=== PATIENT | female | born 1975 ===

== ENCOUNTER 2016-10-24 15:50 | Inpatient (IN) | payer OTHER ==
[~2016-10-24] VITALS: Ht 162.6 cm; Wt 70.7 kg
--- NOTE | 2016-10-24 20:03 | DIAGNOSTIC IMAGING REPORT ---
PROCEDURE: XR ABDOMEN 1 VIEW UPRIGHT INDICATION: ABDOMINAL PAIN TECHNIQUE: Single view upright abdomen. COMPARISON: None. FINDINGS: No free intraperitoneal air. Nonspecific, nonobstructive bowel gas pattern. Solid organs demonstrate situs inversus. There is a large, ovoid calcification measuring about 18 mm projecting over the right renal shadow. Mild dextroscoliosis of the lumbar spine. Partially imaged median sternotomy changes. IMPRESSION: 1. Large right probably intrarenal 18 mm calcification. 2. Nonobstructive bowel gas pattern. 3. Situs inversus.
--- NOTE | 2016-10-24 20:18 | DIAGNOSTIC IMAGING REPORT ---
PROCEDURE: CT ABDOMEN/PELVIS W/O CONTRAST INDICATION: FLANK PAIN TECHNIQUE: Axial CT images were obtained through the abdomen and pelvis without IV contrast. Coronal and sagittal reformations were created. COMPARISON: None. FINDINGS: Situs inversus in chest and abdomen. Clear lung bases. Mild cardiomegaly (with dextrocardia) with partially imaged mitral annular ring. No hiatal hernia. There is severe left hydronephrosis and mild perinephric inflammation. There is a dependently layering 3 mm calculus in the left extrarenal pelvis. The left ureter is dilated. In the distal ureter at the pelvic inlet, there is of 5 mm collection of two stones or a bilobed stone. Distal to this, the ureter is decompressed. Within the right kidney, there is an ovoid 17 mm, nonobstructing calculus in the lower pole major mirela. Within the upper and mid pole, there are two punctate, nonobstructing intrarenal calculi. There are at least five stones, measuring about a centimeter piece, within the partially decompressed gallbladder. The unenhanced appearance of the liver, adrenal glands, pancreas and spleen is normal. The abdominal aorta is normal in its course and caliber. There are no suspicious calcifications, retroperitoneal adenopathy or masses. The stomach, upper bowel loops, and mesentery are normal. Intact anterior abdominal wall. No free fluid or inflammation. The unenhanced appearance of the uterus, ovaries, urinary bladder, pelvic vessels, and pelvic bowel loops is normal. Normal appendix. No suspicious calcifications, free pelvic fluid or mass. Intact osseous structures. Subcortical cystic changes in the right superior acetabulum. Mild rightward curvature of the lumbar spine. IMPRESSION: 1. Severe left hydronephrosis and perinephric inflammation secondary to a single or two obstructing distal ureteral calculi. 2. Small nonobstructing intrarenal calculi bilaterally, and a large, 17 mm nonobstructing right lower pole major mirela calcification. 3. Cholelithiasis. 4. Mild cardiomegaly. 5. Situs inversus. 6. Findings called to the emergency room. All CT scans at this facility use dose modulation, iterative reconstruction, and/or weight-based dosing when appropriate to reduce radiation dose to as low as reasonably achievable.
--- NOTE | 2016-10-24 21:36 | ED CLINICAL REPORT ---
Clinical Report - Physicians/Mid Levels [facility] [address] [place] [address] 10/24/2016 15:51 Patient: EDUARDO GUEVARA Time Seen: 16:02. Arrived- By private vehicle. Historian- patient. HISTORY OF PRESENT ILLNESS Chief Complaint: ABDOMINAL PAIN and FLANK PAIN. It is described as "pain" and sharp and it is described as located in the epigastric area and the left flank and in the suprapubic area. This started yesterday worse at 0400 and is still present. It was abrupt in onset. At its maximum, severity described as 10 / 10. When seen in the E.D., severity described as 9 / 10. Modifying factors- worsened by movement. The patient has had vomiting (20 plus times). Similar symptoms previously: None. Recent medical care: Not recently seen/assessed. REVIEW OF SYSTEMS Last normal menstrual period- 6 days ago. Para 4. Sexual history - sexually active. Has had a tubal ligation. Last normal menstrual period- 4 days ago. She has had constipation (No flatus). No difficulty with urination or urination or pain with urination. No urinary frequency, urinary frequency or urinary problems or chest pain or pain. No difficulty breathing, cough, fever, eye irritation or ear pain. No sore throat, cough, difficulty breathing, black stools or bloody stools. No diarrhea. Last bowel movement- 5 days ago. She has had abdominal pain, constipation, nausea and back pain (Flank pain). No difficulty walking. All systems otherwise negative, except as recorded above. PAST HISTORY PCP: None/ [facility] Out of meds. Ops: VST and ASD repairs, Csections x 3, Hosp: Cardioversion Illness: SVT, ASD and VSD repaired, SITUS INVERSUS TOTALIS. Medications: Atenolol Oral 100 mg, daily. Zoloft Oral 100 mg. Allergies: Anti-nausea meds ??. Penicillins. Zofran. SOCIAL HISTORY Current every day smoker. ADDITIONAL NOTES The nursing notes have been reviewed. PHYSICAL EXAM Vital Signs: 10/24/2016 16:05 BP: 144/85. HR: 86. RR: 20. O2 saturation: 100%. Temp: 97.6 F. Pain level now: 10. Appearance: Alert. Patient in severe distress. (Marked odor of ketones, hyperventilating). Eyes: No conjunctival findings. ENT: Mildly dry mucous membranes present. Neck: Normal inspection. Neck supple. CVS: 5/6 mid systolic murmur .3/6 decrescendo diastolic murmur. Respiratory: No respiratory distress. Breath sounds normal. Abdomen: Soft. (No femoral hernias). Back: Moderate CVA tenderness on the left. Skin: Skin warm. Normal skin color. Extremities: Extremities exhibit normal ROM. No lower extremity edema. Neuro: No alteration in mental status. LABS, X-RAYS, AND EKG Abdominal CT: No hydronephrosis. IMPRESSION: 1. Severe left hydronephrosis and perinephric inflammation secondary to a single or two obstructing distal ureteral calculi. 2. Small nonobstructing intrarenal calculi bilaterally, and a large, 17 mm nonobstructing right lower pole major mirela calcification. 3. Cholelithiasis. 4. Mild cardiomegaly. 5. Situs inversus. 6. Findings called to the emergency room. All CT scans at this facility use dose modulation, iterative reconstruction, and/or weight-based dosing when appropriate to reduce radiation dose to as low as reasonably achievable. Dictated by: ADOLPH PA MD D: EL;10/24/16 2018 <Electronically signed by ADOLPH PA MD in OV>. The study was interpreted by the radiologist and discussed with the radiologist. Laboratory Tests: UA-Culture if indicated: (PHILIP: 10/24/2016 16:30) ( MsgRcvd 10/24/2016 16:54) Final results Test Result Flag Units (Reference) URINE COLOR YELLOW URINE APPEARANCE CLEAR URINE GLUCOSE NEGATIVE (NEGATIVE) URINE BILIRUBIN NEGATIVE (NEGATIVE) URINE KETONE 3+ (NEGATIVE) URINE SPECIFIC GRAVITY 1.020 (1.010-1.030) URINE PH 6.5 (5.0-8.0) URINE PROTEIN 2+ (NEGATIVE) URINE UROBILINOGEN 1.0 EU/dL (0.2-1.0) URINE NITRITE NEGATIVE (NEGATIVE) URINE BLOOD 2+ (NEGATIVE) URINE LEUK ESTERASE NEGATIVE (NEGATIVE) URINE RBC 10-25 rbc/hpf (0-1) URINE WBC 3-5 wbc/hpf (0-1) URINE EPITHELIAL CELLS 3-5 EPI/hpf (0-5) URINE BACTERIA TRACE (<1+) (NONE SEEN) URINE COMMENT CULT NOT INDICATED URINE CULTURES ARE SET-UP BASED ON THE FOLLOWING CRITERIA:POSITIVE NITRITEPOSITIVE LEUKOCYTE ESTERASEGREATER THAN 10 WHITE BLOOD CELLSMODERATE (2+) OR GREATER BACTERIA Urine: (PHILIP: 10/24/2016 16:30) ( [facility] 10/24[facility] 16[facility]47) Final results Test Result Flag Units (Reference) URINE NEGATIVE CBC w Diff: (PHILIP: 10/24/2016 16:40) ( [facility] 10/24/2016 16:54) Final results Test Result Flag Units (Reference) WHITE BLOOD COUNT 19.4 H K/uL (4.5-11.5) RED BLOOD COUNT 5.27 H M/uL (4.00-5.20) HEMOGLOBIN 15.9 gm/dL (12.0-16.0) HEMATOCRIT 47.5 H % (36.0-46.0) MEAN CELL VOLUME 90 fL (80-100) MEAN CORPUSCULAR HGB 30 pg (26-34) MEAN CORPUSCULAR HGB CONC 33 g/dL (31-37) RED CELL DISTRIBUTION WIDTH 13.3 % (11.6-14.8) PLATELET COUNT 241 K/uL (150-400) NEUTROPHIL % 85.7 H % (50-75) LYMPH % 10.4 L % (25-40) MONO % 3.5 % (3-14) EOSINOPHIL % 0 % (0-4) BASOPHIL % 0.4 % (0-2) Lactate, Serum: (PHILIP: 10/24/2016 17:10) ( [facility] 10/24/2016 17:58) Final results Test Result Flag Units (Reference) LACTIC ACID 3.4 H mmol/L (0.4-2.0) Acetone, Serum: (PHILIP: 10/24/2016 16:40) ( [facility] 10/24/2016 17:08) Final results Test Result Flag Units (Reference) ACETONE, SERUM QUALITATIVE NEGATIVE (NEGATIVE) Urine Drug Screen: (PHILIP: 10/24/2016 16:30) ( [facility] 10/24/2016 16:57) Final results Test Result Flag Units (Reference) AMPHETAMINE/METHAMPHETAMINE NEGATIVE (NEGATIVE) BARBITURATE NEGATIVE (NEGATIVE) BENZODIAZEPINE NEGATIVE (NEGATIVE) CANNABINOID POSITIVE H (NEGATIVE) COCAINE NEGATIVE (NEGATIVE) ECSTASY NEGATIVE (NEGATIVE) METHADONE NEGATIVE (NEGATIVE) OPIATE POSITIVE H (NEGATIVE) The urine drug screen is a qualitative screening test fordrug overdose and abuse. All screen results should beconsidered as presumptive.Drugs screened for are as follows:BenzodiazepinesCocaineAmphetamines/MetamphetaminesTHC (Tetrahydrocannabinol)OpiatesBarbituratesEcstasyMethadonePositive results are unconfirmed. For confirmation, notifythe lab for the specimen to be sent to the reference lab.All confirmations must be performed by a differentmethodology.The ingestion of natural herbal and plant productscontaining Ephedra/Ephedra metabolites can produce in urineone or more substances capable of cross reacting withamphetamine/methamphetamine immunoassays. These testsprovide a preliminary result only. A more specificalternative chemical method must be used to obtain aconfirmed analytical result. CMP: (PHILIP: 10/24/2016 16:40) ( [facility] 10/24/2016 17:08) Final results Test Result Flag Units (Reference) GLUCOSE 132 H mg/dL (70-110) BUN 17 mg/dL (7-18) CREATININE 1.4 H mg/dL (0.6-1.3) Estimated GFR 44.49 mL/min Estimated GFR- 53.93 mL/min Note: Persistent reduction over 3 months in eGFR<60 mL/min/1.73 m2 defines CKD. Patients with eGFR values>=60 mL/min/1.73 m2 may also have CKD if evidence ofpersistent proteinuria. Additional information may be foundat www.kidney.org. SODIUM 141 mmol/L (136-145) POTASSIUM 3.4 L mmol/L (3.5-5.1) CHLORIDE 103 mmol/L (98-107) CARBON DIOXIDE 19 L mmol/L (21-32) CALCIUM 9.8 mg/dL (8.5-10.1) TOTAL PROTEIN 9.0 H g/dL (6.4-8.2) ALBUMIN 4.5 g/dL (3.3-5.0) BILIRUBIN, TOTAL 1.0 mg/dL (0.0-1.0) ALKALINE PHOSPHATASE 112 U/L (46-116) AST (SGOT) 16 U/L (15-37) ALT (SGPT) 16 U/L (12-78) . PROGRESS AND PROCEDURES Course of Care: PRE TEST DDX: Renal colic, pyelonephritis, much less likely mesenteric ischemia. 21:10 10/24/16. After an initial misunderstanding that [facility] did not have available beds it was discovered that [facility] did have beds. My plan was to admit the patient to [facility] for control of vomiting and pain with a urologist available to consult. The [facility] urologist, Dr Cary, states that the patient should not be transfered and that she did not need to consult. Only pain relief and control of nausea were needed at this time, with later Urology referral. 21:15 10/24/16. Dr Salinas agrees to accept the patient to [facility] 23:45 10/24/16. In review of labs at the time of this report the lactate was discuvered to be elevated. Dr Teresa was informed. The patient has no fever x 2, and a non infected appearing urinary sediment. Disposition orders written. Disposition: Admitted. CLINICAL IMPRESSION INTRACTABLE VOMITING ACUTE ABDOMINAL PAIN SECONDARY TO A 5 MM L URETERAL STONE. 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 (Electronically signed by Erasto Gomez MD 10/24/2016 23:55)
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
--- NOTE | 2016-10-24 21:36 | ED ORDER SUMMARY ---
..... Patient: EDUARDO GUEVARA OrderSheet [facility] VisitID: [id number] [address] [place] [address] 40y, F Registration Date/Time: 10/24/2016 ORDER SHEET Weight: 70.3 kg (stated) Allergies: Penicillins, Zofran, Anti-nausea meds ?? GENERAL ORDERS: -- (IN AND OUT CATH UA) (16:11 10/24/2016 Shukri LITTLE) (16:33 JSimbeck R.N.) CBC w Diff Urgent (16:11 10/24/2016 Shukri LITTLE) (Ack 16:13 Alexey) (16:47 JSimbeck R.N.) CMP Urgent (16:11 10/24/2016 Shukri LITTLE) (Ack 16:13 Alexey) (16:47 JSimbeck R.N.) UA-Culture if indicated Urgent (16:11 10/24/2016 Shukri LITTLE) (Ack 16:13 Alexey) (16:32 JSimbeck R.N.) Urine Urgent (16:11 10/24/2016 Shukri LITTLE) (Ack 16:13 Alexey) (16:32 JSimbeck R.N.) Urine Drug Screen Urgent (16:11 10/24/2016 Shukri LITTLE) (Ack 16:13 Alexey) (16:32 JSimbeck R.N.) - (16:11 10/24/2016 Shukri LITTLE) (16:33 JSimbeck R.N.) Acetone, Serum Urgent (16:55 10/24/2016 Shukri LITTLE) (Ack 17:02 Alexey) (17:54 JSimbeck R.N.) Lactate, Serum Urgent (16:59 10/24/2016 Shukri LITTLE) (Ack 17:02 Alexey) (17:54 JSimbeck R.N.) Abdomen 1V Upright Urgent (17:08 10/24/2016 Shukri LITTLE) (Ack 17:17 Alexey) (18:31 Cristi) CT Abd/Pel wo Cont Urgent (17:49 10/24/2016 Shukri LITTLE) (Ack 17:51 Alexey) (18:31 Cristi) - (repeat twemp please.) (21:22 10/24/2016 Shukri LITTLE) (21:35 Leila Ngo) MEDICATION ORDERS: Flomax PO 0.4 mg (NOW) (22:11 10/24/2016 Shukri LITTLE) (Ack 22:20 JQuivey R.N.) (22:25 JQuivey R.N.) IV FLUIDS: IV NS : initial bolus none -, then 500 mL/hr for 2h (NOW); Urgent (16:10 10/24/2016 Shukri LITTLE) (16:48 Isabell Ortiz.N.) Dilaudid IV 1 mg (HIGH ALERT MEDICATION, NOW) (16:49 10/24/2016 Shukri LITTLE) (17:11 Isabell Ortiz.N.) Zofran IV 8 mg (risks worth benefit. ) (16:56 10/24/2016 Shukri LITTLE) (17:11 Isabell R.N.) Zofran IV 2 mg iv (NOW) (20:06 10/24/2016 Shukri LITTLE) (Ack 20:10 Adelinaivey R.N.) (20:16 Adelinaivey R.N.) Dilaudid IV 1 mg (HIGH ALERT MEDICATION, NOW) (20:06 10/24/2016 Shukri LITTLE) (Ack 20:10 JQuivey R.N.) (20:16 JQuivey R.N.) ORDER SHEET NOTES: [Electronically signed by Erasto Gomez MD (23:55 10/24/2016)] [Electronically signed by Wilfrido Dangelo R.N. (02:12 10/25/2016)] [Electronically locked/signed by Wilfrido Dangelo R.N. (02:12 10/25/2016)]
--- NOTE | 2016-10-24 21:36 | ED ORDER SUMMARY ---
..... Patient: EDUARDO GUEVARA OrderSheet [facility] VisitID: [id number] [address] [place] [address] 40y, F Registration Date/Time: 10/24/2016 ORDER SHEET Weight: 70.3 kg (stated) Allergies: Penicillins, Zofran, Anti-nausea meds ?? GENERAL ORDERS: -- (IN AND OUT CATH UA) (16:11 10/24/2016 Shukri LITTLE) (16:33 JSimbeck R.N.) CBC w Diff Urgent (16:11 10/24/2016 Shukri LITTLE) (Ack 16:13 Alexey) (16:47 JSimbeck R.N.) CMP Urgent (16:11 10/24/2016 Shukri LITTLE) (Ack 16:13 Alexey) (16:47 JSimbeck R.N.) UA-Culture if indicated Urgent (16:11 10/24/2016 Shukri LITTLE) (Ack 16:13 Alexey) (16:32 JSimbeck R.N.) Urine Urgent (16:11 10/24/2016 Shukri LITTLE) (Ack 16:13 Alexey) (16:32 JSimbeck R.N.) Urine Drug Screen Urgent (16:11 10/24/2016 Shukri LITTLE) (Ack 16:13 Alexey) (16:32 JSimbeck R.N.) - (16:11 10/24/2016 Shukri LITTLE) (16:33 JSimbeck R.N.) Acetone, Serum Urgent (16:55 10/24/2016 Shukri LITTLE) (Ack 17:02 Alexye) (17:54 JSimbeck R.N.) Lactate, Serum Urgent (16:59 10/24/2016 Shukri LITTLE) (Ack 17:02 Alexey) (17:54 JSimbeck R.N.) Abdomen 1V Upright Urgent (17:08 10/24/2016 Shukri LITTLE) (Ack 17:17 Alexey) (18:31 Cristi) CT Abd/Pel wo Cont Urgent (17:49 10/24/2016 Shukri LITTLE) (Ack 17:51 Alexey) (18:31 Cristi) - (repeat twemp please.) (21:22 10/24/2016 Shukri LITTLE) (21:35 Leila Ngo) MEDICATION ORDERS: Flomax PO 0.4 mg (NOW) (22:11 10/24/2016 Shukri LITTLE) (Ack 22:20 JQuivey R.N.) (22:25 JQuivey R.N.) IV FLUIDS: IV NS : initial bolus none -, then 500 mL/hr for 2h (NOW); Urgent (16:10 10/24/2016 Shukri LITTLE) (16:48 Isabell Ortiz.N.) Dilaudid IV 1 mg (HIGH ALERT MEDICATION, NOW) (16:49 10/24/2016 Shukri LITTLE) (17:11 Isabell Ortiz.N.) Zofran IV 8 mg (risks worth benefit. ) (16:56 10/24/2016 Shukri LITTLE) (17:11 Isabell R.N.) Zofran IV 2 mg iv (NOW) (20:06 10/24/2016 Shukri LITTLE) (Ack 20:10 Adelinaivey R.N.) (20:16 Adelinaivey R.N.) Dilaudid IV 1 mg (HIGH ALERT MEDICATION, NOW) (20:06 10/24/2016 Shukri LITTLE) (Ack 20:10 JQuivey R.N.) (20:16 JQuivey R.N.) ORDER SHEET NOTES: [Electronically signed by Erasto Gomez MD (23:55 10/24/2016)] [Electronically signed by Wilfrido Dangelo R.N. (02:12 10/25/2016)] [Electronically locked/signed by Wilfrido Dangelo R.N. (02:12 10/25/2016)]
[2016-10-25 01:47] VITALS: BP 121/65
--- NOTE | 2016-10-25 02:12 | ED MED RECONCILIATION SUMMARY ---
Patient: EDUARDO GUEVARA Medication Reconciliation Report [facility] VisitID: [id number] [address] [place] [address] 40y, F Registration Date/Time: 10/24/2016 Weight: 70.3 kg Height/Length: 64 in. BMI: 26.6 ALLERGIES: Anti-nausea meds ??, Penicillins, Zofran The patient's Home Medications are listed below: THE FOLLOWING MEDICATIONS NEED TO BE RECONCILED: Atenolol Oral 100 mg, daily Zoloft Oral 100 mg The source(s) of the original Home Medication information: Not obtained. The following Medications were given to the patient in the Emergency Department: IV NS IV Fluids bolus 0, then 500 mL/hr, administered: 10/24/2016 4:42:00 PM Zofran [IVP] IVP 8 mg, administered: 10/24/2016 5:07:00 PM Dilaudid [IVP] IVP 1 mg, administered: 10/24/2016 5:09:00 PM Zofran [IVP] IVP 2 mg, administered: 10/24/2016 8:11:00 PM Dilaudid [IVP] IVP 1 mg, administered: 10/24/2016 8:14:00 PM Flomax [PO] PO 0.4 mg, administered: 10/24/2016 10:23:00 PM The following Medications were prescribed to the patient: None.
--- NOTE | 2016-10-25 02:12 | ED MED RECONCILIATION SUMMARY ---
Patient: EDUARDO GUEVARA Medication Reconciliation Report [facility] VisitID: [id number] [address] [place] [address] 40y, F Registration Date/Time: 10/24/2016 Weight: 70.3 kg Height/Length: 64 in. BMI: 26.6 ALLERGIES: Anti-nausea meds ??, Penicillins, Zofran The patient's Home Medications are listed below: THE FOLLOWING MEDICATIONS NEED TO BE RECONCILED: Atenolol Oral 100 mg, daily Zoloft Oral 100 mg The source(s) of the original Home Medication information: Not obtained. The following Medications were given to the patient in the Emergency Department: IV NS IV Fluids bolus 0, then 500 mL/hr, administered: 10/24/2016 4:42:00 PM Zofran [IVP] IVP 8 mg, administered: 10/24/2016 5:07:00 PM Dilaudid [IVP] IVP 1 mg, administered: 10/24/2016 5:09:00 PM Zofran [IVP] IVP 2 mg, administered: 10/24/2016 8:11:00 PM Dilaudid [IVP] IVP 1 mg, administered: 10/24/2016 8:14:00 PM Flomax [PO] PO 0.4 mg, administered: 10/24/2016 10:23:00 PM The following Medications were prescribed to the patient: None.
--- NOTE | 2016-10-25 02:12 | ED DISCHARGE INSTRUCTIONS ---
Patient: EDUARDO GUEVARA General Instructions [facility] VisitID: [id number] [address] [place] [address] 40y, F Registration Date/Time: 10/24/2016 INTRACTABLE VOMITING ACUTE ABDOMINAL PAIN SECONDARY TO A 5 MM L URETERAL STONE. 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 (Electronically signed by Erasto Gomez MD 10/24/2016 23:55)
--- NOTE | 2016-10-25 02:12 | ED MAR SUMMARY ---
..... Medication Administration Record [facility] [address] [place] [place] [address] Patient: EDUARDO GUEVARA Visit ID: [id number] 40y, F Weight: 70.3 kg Height/Length: 64 in BMI: 26.6 ALLERGIES: Anti-nausea meds ??, Zofran, Penicillins Start 16:42 10/24/2016 Alvino Matute R.N., Stop 19:11 10/24/2016 Wilfrido Dangelo R.N. Medication Administered: IV NS (SALINE), Dose: IV Fluids over 2 hour(s), Rate: 500 mL/hr, Dispensed: 1000 mL bag, Site: #1 right AC. Medication Ordered: IV NS : initial bolus none -, then 500 mL/hr for 2h (NOW); Urgent. Given 17:07 10/24/2016 Alvino Matute R.N. Medication Administered: ZOFRAN [IVP] (ONDANSETRON HCL), Dose: 8 mg IVP over 2 minute(s), Site: #1 right AC. Medication Ordered: Zofran IV 8 mg (risks worth benefit. ). Given 17:09 10/24/2016 Alvino Matute R.N. Medication Administered: DILAUDID [IVP] (HYDROMORPHONE HCL PF), Dose: 1 mg IVP over 2 minute(s), Site: #1 right AC. Medication Ordered: Dilaudid IV 1 mg (HIGH ALERT MEDICATION, NOW). Given 20:11 10/24/2016 Wilfrido Dangelo R.N. Medication Administered: ZOFRAN [IVP] (ONDANSETRON HCL), Dose: 2 mg IVP over 1 minute(s), Site: #1 right AC. Medication Ordered: Zofran IV 2 mg iv (NOW). Given 20:14 10/24/2016 Wilfrido Dangelo R.N. Medication Administered: DILAUDID [IVP] (HYDROMORPHONE HCL PF), Dose: 1 mg IVP over 2 minute(s), Site: #1 right AC. Medication Ordered: Dilaudid IV 1 mg (HIGH ALERT MEDICATION, NOW). Given 22:23 10/24/2016 Quivey, Wilfrido, R.N. Medication Administered: FLOMAX [PO] (TAMSULOSIN HCL), Dose: 0.4 mg PO. Medication Ordered: Flomax PO 0.4 mg (NOW).
--- NOTE | 2016-10-25 02:12 | ED MAR SUMMARY ---
..... Medication Administration Record [facility] [address] [place] [place] [address] Patient: EDUARDO GUEVARA Visit ID: [id number] 40y, F Weight: 70.3 kg Height/Length: 64 in BMI: 26.6 ALLERGIES: Anti-nausea meds ??, Zofran, Penicillins Start 16:42 10/24/2016 Alvino Matute R.N., Stop 19:11 10/24/2016 Wilfrido Dangelo R.N. Medication Administered: IV NS (SALINE), Dose: IV Fluids over 2 hour(s), Rate: 500 mL/hr, Dispensed: 1000 mL bag, Site: #1 right AC. Medication Ordered: IV NS : initial bolus none -, then 500 mL/hr for 2h (NOW); Urgent. Given 17:07 10/24/2016 Alvino Matute R.N. Medication Administered: ZOFRAN [IVP] (ONDANSETRON HCL), Dose: 8 mg IVP over 2 minute(s), Site: #1 right AC. Medication Ordered: Zofran IV 8 mg (risks worth benefit. ). Given 17:09 10/24/2016 Alvino Matute R.N. Medication Administered: DILAUDID [IVP] (HYDROMORPHONE HCL PF), Dose: 1 mg IVP over 2 minute(s), Site: #1 right AC. Medication Ordered: Dilaudid IV 1 mg (HIGH ALERT MEDICATION, NOW). Given 20:11 10/24/2016 Wilfrido Dangelo R.N. Medication Administered: ZOFRAN [IVP] (ONDANSETRON HCL), Dose: 2 mg IVP over 1 minute(s), Site: #1 right AC. Medication Ordered: Zofran IV 2 mg iv (NOW). Given 20:14 10/24/2016 Wilfrido Dangelo R.N. Medication Administered: DILAUDID [IVP] (HYDROMORPHONE HCL PF), Dose: 1 mg IVP over 2 minute(s), Site: #1 right AC. Medication Ordered: Dilaudid IV 1 mg (HIGH ALERT MEDICATION, NOW). Given 22:23 10/24/2016 Quivey, Wilfrido, R.N. Medication Administered: FLOMAX [PO] (TAMSULOSIN HCL), Dose: 0.4 mg PO. Medication Ordered: Flomax PO 0.4 mg (NOW).
--- NOTE | 2016-10-25 02:12 | ED DISCHARGE INSTRUCTIONS ---
Patient: EDUARDO GUEVARA General Instructions [facility] VisitID: [id number] [address] [place] [address] 40y, F Registration Date/Time: 10/24/2016 INTRACTABLE VOMITING ACUTE ABDOMINAL PAIN SECONDARY TO A 5 MM L URETERAL STONE. 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 (Electronically signed by Erasto Gomez MD 10/24/2016 23:55)
[2016-10-25] MEDS ORDERED: ATENOLOL100 MG PO (02:15)
--- NOTE | 2016-10-25 06:44 | HISTORY AND PHYSICAL ---
ADMITTED: 10/24/2016 HISTORY OF PRESENT ILLNESS: The patient is a 40-year-old lady who comes in to the emergency department this afternoon for evaluation of problems with refractory nausea and vomiting and pain in the left lower back and flank area. She has had some intermittent left mid to lower back pain for several months. It seems to come and go. She has thought this was just her back. She started having significantly increased pain about a half hour prior to her admission. The pain became quite severe around 3 a.m. this morning and with the pain, she started having refractory nausea and vomiting. This has not really responded to anything and she came into the emergency department. She has been given repetitive doses of Zofran with minimal relief. She has had hydromorphone for pain and this has seemed to help some. She did show evidence of a distal left ureter stone as well as a stone in the infundibulum area of the kidney on the left side and a large stone on the right kidney lower pole. She also showed evidence of asymptomatic gallstones. She was not aware of having kidney stones at all until today. 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 She also has had problems with situs inversus, though she has not really had any major difficulties directly related to this. She has had episodes of SVT in the past that have required cardioversion. Past surgical history is remarkable for open heart surgery at 1.5 years and age 22 to repair of the atrioseptal defect and ventriculoseptal defects. Other procedures include a x3 with tubal ligation done with her last . She has also had 1 spontaneous vaginal delivery. She has had 1 miscarriage. MEDICATIONS: 1. Atenolol 100 mg daily. 2. Question of Zoloft 100 mg daily. 3. Ibuprofen recently for pain. ALLERGIES: 1. PROMETHAZINE. 2. TYLENOL WITH CODEINE. 3. MIDOL. SOCIAL HISTORY: Indicates the patient is currently unmarried and is living with a significant other and with her children. She does smoke 1/4-1/2 pack of cigarettes per day and has been doing this for about 10 years. She is currently trying to stop completely. She occasionally drinks 1 alcoholic drink about once or twice a month. FAMILY HISTORY: Remarkable for a mother who has had problems with diabetes, hyperlipidemia and hypertension. She is currently age 66. The patient's father is around 75 and has no major problems. The patient does have a sister, aunt, and maternal grandmother who had breast cancer. REVIEW OF SYSTEMS: HEENT has been okay. Respiratory has been okay. Cardiovascular is remarkable for a rapid heartbeats intermittently and ongoing use of atenolol, presenting acute difficulties. Gastrointestinal is okay with history of situs inversus. Genitourinary is okay, except for the kidney stone issues as noted above. The patient has continued to have regular menstrual periods. Musculoskeletal is remarkable for some mild back pain. Skin is okay. PHYSICAL EXAMINATION: GENERAL: Reveals the patient to be a woman who is intermittently uncomfortable and nauseated and occasional dry heaves. VITAL SIGNS: She is showing a blood pressure in the 144/85 range with oxygen saturation of 100 percent and temperature 97.6. HEENT: Head is normal. Ear canals and tympanic membranes are normal. Eyes show pupils equal, round, and reactive to light. Nose and throat are clear. NECK: Supple without significant adenopathy. CHEST: Clear to auscultation and percussion. HEART: Reveals normal S1 and S2 with no distinct S3. There is a grade 4/6 systolic murmur and a grade 2 to 3/6 diastolic decrescendo murmur along the left sternal border. BACK: Shows pronounced left costovertebral angle tenderness. ABDOMEN: Shows some mild tenderness in the mid abdominal area and lower quadrant on the left. There is no major guarding. BREASTS: Show no masses. There is no axillary adenopathy. PELVIC: Not done. RECTAL: Not done. LOWER EXTREMITIES: Normal with normal pulses. There is no edema. NEUROLOGIC: Shows the patient to be alert and oriented x3. Cranial nerves are normal. Motor and sensory exams are normal. SKIN: Normal. LAB/IMAGING: Laboratory studies show urinalysis with 2+ blood and 3 to 5 white blood cells. Lactic acid is slightly elevated at 3.4. White blood cell count is 19,000 , hemoglobin is 15.9, hematocrit is 47.5. Sodium is 141, potassium 3.4, chloride 103, CO2 19, glucose 132, creatinine 1.4. BUN is 17. Alkaline phosphatase is okay 112. SGOT is 16, SGPT 16. Imaging studies show 2 small stones or one area of stone in the left distal ureter. There is a 0.5 mm stone in the left renal pelvis. There is a large stone in the right kidney which is appearing to be stable and not anything that would be likely to pass. IMPRESSION: 1. The patient is presenting with acute left distal ureter obstruction due to a kidney stone in the distal ureter on the left side. It would be appropriate to try tamsulosin and ketorolac to see if this combination will help her have the stones resolve. She will proceed with hydration and pain management and will have symptoms followed. If she does not improve, she may need to see one of the urologists. Urologist was contacted through the emergency department and felt the patient should try medical management for several days before surgical intervention and felt that surgical intervention would be indicated only if the patient developed markedly increased symptoms and symptoms suggesting abdominal or perinephric abscess. PLAN: The patient will be continued on intravenous fluids as noted. She will continue with tamsulosin and Toradol as needed. Blood cultures to be done if she has a temperature elevation. She will not be started antibiotics at this point unless she shows definite evidence of infection. Urine culture is pending and swabs from the wounds are pending for culture.
[2016-10-25 07:05] VITALS: BP 93/52
--- NOTE | 2016-10-25 08:25 | Progress Note ---
Subjective General Note Date: October 25, 2016 Admission Date: October 25, 2016 Hospital Day: 1 PCP: Unknown Status: Observation Advanced Directive: Full Code Room: 209-B Brief History: The patient is a 40-year-old white female with a significant past medical history of congenital heart disease-status post ASD/VSD repair, SVT, who presented to [facility] emergency department secondary to back pain, nausea and vomiting. [facility] ER evaluation was consistent with left ureteral stone with associated hydronephrosis. Secondary to the above, the patient was admitted by Valentin Teresa M.D. for further evaluation and treatment. For other history present illness, past medical history, family history, social history, review of systems, and admission physical examination please see the patient's history and physical examination and ER visit note in the patient's medical record. Subjective: The patient states she is doing somewhat better today. Pain improved. Persistent nausea. Patient requests: Patient wishes to pursue solid food diet Medications and Allergies Medications Current Medications Sig/Kp Start time Last Medication Dose Route Stop Time Status Admin Hydromorphone HCl 0.5 MG Q1H PRN 10/25 0015 AC 10/25 IV 0421 Ketorolac 15 MG Q6H 10/25 0015 AC 10/25 Tromethamine IV 0613 Lactated Ringer's 1,000 ML ASDIRECTED 10/25 0015 AC 10/25 IV 0426 Lorazepam 0.5 MG Q4H PRN 10/25 0015 AC 10/25 IV 0408 Hydromorphone HCl See Dose ONCE PRN 10/24 2230 AC Insts (1) IV Ondansetron HCl 4 MG Q4H PRN 10/24 2230 AC IV Dose Instructions: (1)Hydromorphone HCl: 0.5-1 MG Allergies Coded Allergies: Penicillins (Swelling, face, throat 10/25/16) Oxycodone (From PERCOCET) (Vomiting 10/25/16) Physical Exam Vital Signs / I&Os Vital Signs Date Time Temp Pulse Resp B/P Pulse O2 O2 Flow FiO2 Ox Delivery Rate 10/25 0705 98.2 71 18 93/52 97 Room Air 10/25 0147 97.9 70 15 121/65 99 Room Air 10/25 0056 Room Air I&O 10/25 0000 10/24 1600 10/24 0800 Intake Total Output Total Balance General Appearance Alert, Oriented X3, Cooperative, No acute distress Lungs Clear to auscultation, Normal air movement Cardiovascular Regular rate and rhythm, Normal S1 and S2, murmur unchanged Abdomen Normal bowel sounds, Soft, mild CVA tenderness left side Extremities No cyanosis, No clubbing, No edema Neurological Cranial nerves intact, No lateralizing signs Psych/Mental Status Mental status normal, Mood normal LAB Results Laboratory Tests 10/25 10/25 10/25 10/24 0515 0505 0505 1710 Chemistry Plasma Sodium (136 - 145 mmol/L) 145 Plasma Potassium (3.5 - 5.1 mmol/L) 3.4 Plasma Chloride (98 - 107 mmol/L) 111 CO2 (Enzymatic) (21 - 32 mmol/L) 20 BUN (7 - 18 mg/dL) 15 Creatinine (0.6 - 1.3 mg/dL) 1.0 Est GFR ( Amer) (mL/min) >60 Est GFR (Non-Af Amer) (mL/min) >60 Glucose (70 - 110 mg/dL) 96 Lactic Acid (0.4 - 2.0 mmol/L) 0.8 3.4 Plasma Calcium (8.5 - 10.1 mg/dL) 8.4 Hematology WBC (4.5 - 11.5 K/uL) 14.1 RBC (4.00 - 5.20 M/uL) 4.13 Hgb (12.0 - 16.0 gm/dL) 12.3 Hct (36.0 - 46.0 %) 37.4 MCV (80 - 100 fL) 91 MCH (26 - 34 pg) 30 RDW (11.6 - 14.8 %) 13.4 Neut % (Auto) (50 - 75 %) 72.8 Lymph % (Auto) (25 - 40 %) 17.9 Power % (Auto) (3 - 14 %) 8.2 Eos % (Auto) (0 - 4 %) 0.7 Baso % (Auto) (0 - 2 %) 0.4 Plt Count, EDTA (150 - 400 K/uL) 187 PUBS MCHC (31 - 37 g/dL) 33 Urines Urine Color YELLOW Urine Appearance CLEAR Urine pH (5.0 - 8.0) 6.0 Ur Specific [place] (1.010 - 1.030) >= 1.030 Urine Protein (NEGATIVE) 1+ Urine Ketones (NEGATIVE) 2+ Urine Blood (NEGATIVE) 3+ Urine Nitrite (NEGATIVE) NEGATIVE Urine Bilirubin (NEGATIVE) NEGATIVE Urine Urobilinogen (0.2 - 1.0 EU/dL) 1.0 Ur Leukocyte Esterase (NEGATIVE) NEGATIVE Urine RBC (0 - 1 rbc/hpf) 25-50 Urine WBC (0 - 1 wbc/hpf) 1-3 Ur Epithelial Cells (0 - 5 EPI/hpf) 5-10 Urine Bacteria (NONE SEEN) MODERATE (2+ TO 3+) Urine Glucose (NEGATIVE) NEGATIVE Urine Comment CULTURE INDICATED 10/24 10/24 10/24 1640 1630 1630 Chemistry Plasma Sodium (136 - 145 mmol/L) 141 Plasma Potassium (3.5 - 5.1 mmol/L) 3.4 Plasma Chloride (98 - 107 mmol/L) 103 CO2 (Enzymatic) (21 - 32 mmol/L) 19 BUN (7 - 18 mg/dL) 17 Creatinine (0.6 - 1.3 mg/dL) 1.4 Est GFR ( Amer) (mL/min) 53.93 Est GFR (Non-Af Amer) (mL/min) 44.49 Glucose (70 - 110 mg/dL) 132 Plasma Calcium (8.5 - 10.1 mg/dL) 9.8 Total Bilirubin (0.0 - 1.0 mg/dL) 1.0 AST (15 - 37 U/L) 16 ALT (12 - 78 U/L) 16 Alkaline Phosphatase (46 - 116 U/L) 112 Total Protein (6.4 - 8.2 g/dL) 9.0 Albumin (3.3 - 5.0 g/dL) 4.5 Hematology WBC (4.5 - 11.5 K/uL) 19.4 RBC (4.00 - 5.20 M/uL) 5.27 Hgb (12.0 - 16.0 gm/dL) 15.9 Hct (36.0 - 46.0 %) 47.5 MCV (80 - 100 fL) 90 MCH (26 - 34 pg) 30 RDW (11.6 - 14.8 %) 13.3 Neut % (Auto) (50 - 75 %) 85.7 Lymph % (Auto) (25 - 40 %) 10.4 Power % (Auto) (3 - 14 %) 3.5 Eos % (Auto) (0 - 4 %) 0 Baso % (Auto) (0 - 2 %) 0.4 Plt Count, EDTA (150 - 400 K/uL) 241 PUBS MCHC (31 - 37 g/dL) 33 Toxicology Urine Opiates Screen (NEGATIVE) POSITIVE Urine Methadone Screen (NEGATIVE) NEGATIVE Ur Barbiturates Screen (NEGATIVE) NEGATIVE U Amphetamin/Meth Scrn (NEGATIVE) NEGATIVE MDMA (Ecstasy) Screen (NEGATIVE) NEGATIVE U Benzodiazepines Scrn (NEGATIVE) NEGATIVE Urine Cocaine Screen (NEGATIVE) NEGATIVE U Cannabinoids Screen (NEGATIVE) POSITIVE Acetone, Qual (NEGATIVE) NEGATIVE Urines Urine Color YELLOW Urine Appearance CLEAR Urine pH (5.0 - 8.0) 6.5 Ur Specific [place] (1.010 - 1.030) 1.020 Urine Protein (NEGATIVE) 2+ Urine Ketones (NEGATIVE) 3+ Urine Blood (NEGATIVE) 2+ Urine Nitrite (NEGATIVE) NEGATIVE Urine Bilirubin (NEGATIVE) NEGATIVE Urine Urobilinogen (0.2 - 1.0 EU/dL) 1.0 Ur Leukocyte Esterase (NEGATIVE) NEGATIVE Urine RBC (0 - 1 rbc/hpf) 10-25 Urine WBC (0 - 1 wbc/hpf) 3-5 Ur Epithelial Cells (0 - 5 EPI/hpf) 3-5 Urine Bacteria (NONE SEEN) TRACE (<1+) Urine Glucose (NEGATIVE) NEGATIVE Urine Test NEGATIVE Urine Comment CULT NOT INDICATED Microbiology Date/Time Procedure - Status Source Growth 10/25 514 Urine Culture - RECD URINE CC 10/25 UNK Blood Culture - COLB BLOOD 10/25 UNK Blood Culture - COLB BLOOD Assessment and Plan Problem List 1. Ureteral stone with hydronephrosis Status Acute Onset Date Unknown Plan -Patient with findings of ureteral stone with hydronephrosis -No clear indication of postobstructive infection -Mildly abnormal urinary sediment will begin Levaquin 500 mg IV daily -Recheck ultrasound in a.m. -Recheck CBC, electrolytes this p.m. -If persistent hydronephrosis plan transfer to [facility] for urology consultation 2. SVT (supraventricular tachycardia) Status Chronic Onset Date Unknown 3. Hypertension Plan -Patient with borderline low blood pressure. -BP 97/60 mmHg -Monitor -IV fluid therapy 4. Intractable vomiting Plan -Resolved -Monitor -Antiemetics as necessary Current status: Fair, unstable Anticipated discharge date: Anticipated discharge 1-2 days Anticipated discharge placement: Home versus transfer for urological evaluation Patient care time: Time spent in chart review, patient interview, physical exam, CPOE, and care documentation: 25 minutes Visit to patient today: 2 Complexity of care: Moderate E&M Codes Rounding: Inpt-Moderate/[id number]
[2016-10-25 09:58] VITALS: BP 97/60
[2016-10-25 14:17] VITALS: BP 96/50
[2016-10-25 18:02] VITALS: BP 134/78
[2016-10-25 23:23] VITALS: BP 114/51
[2016-10-26 06:50] VITALS: BP 124/75
--- NOTE | 2016-10-26 07:52 | Progress Note ---
Subjective General Note Date: October 26, 2016 Admission Date: October 25, 2016 Hospital Day: 2 PCP: Unknown Status: Observation Advanced Directive: Full Code Room: 209-B Brief History: The patient is a 40-year-old white female with a significant past medical history of congenital heart disease-status post ASD/VSD repair, SVT, who presented to [facility] emergency department secondary to back pain, nausea and vomiting. [facility] ER evaluation was consistent with left ureteral stone with associated hydronephrosis. Secondary to the above, the patient was admitted by Valentin Teresa M.D. for further evaluation and treatment. For other history present illness, past medical history, family history, social history, review of systems, and admission physical examination please see the patient's history and physical examination and ER visit note in the patient's medical record. Subjective: The patient states her symptoms remain unchanged. Persistent left-sided back pain and nausea overnight. No significant improvement in the past 24 hours. Patient requests: No specific, pain control, nausea control Medications and Allergies Medications Current Medications Sig/Kp Start time Last Medication Dose Route Stop Time Status Admin Tamsulosin HCl 0.4 MG QHS 10/26 2100 AC PO Ketorolac 30 MG Q6HR 10/25 1800 AC 10/26 Tromethamine IV 10/26 1201 0610 Meperidine HCl See Dose Q3H PRN 10/25 1615 AC Insts (1) IV Promethazine HCl 6.25 MG Q6H PRN 10/25 1615 AC 10/25 IV 2332 Levofloxacin/Dextrose 100 ML DAILY 10/25 1015 AC 10/25 IV 1053 Lactated Ringer's 1,000 ML ASDIRECTED 10/25 0015 AC 10/26 IV 0110 Lorazepam 0.5 MG Q4H PRN 10/25 0015 AC 10/26 IV 0619 Ondansetron HCl 4 MG Q4H PRN 10/24 2230 AC 10/25 IV 1640 Dose Instructions: (1)Meperidine HCl: 25 - 50 MG Allergies Coded Allergies: Penicillins (Swelling, face, throat 10/25/16) Oxycodone (From PERCOCET) (Vomiting 10/25/16) Physical Exam Vital Signs / I&Os Vital Signs Date Time Temp Pulse Resp B/P Pulse O2 O2 Flow FiO2 Ox Delivery Rate 10/26 0650 98.6 74 18 124/75 96 Room Air 10/25 2323 98.1 76 18 114/51 94 Room Air 10/25 1935 Room Air 10/25 1802 98.1 70 18 134/78 99 04/ 1417 98.4 72 18 96/50 100 04/02 0958 97.9 72 18 97/60 97 Room Air 10/25 0825 Room Air 0.0 I&O 10/26 0000 10/25 1600 10/25 0800 Intake Total 120 1442 1248 Output Total 550 200 120 Balance -430 1242 1128 General Appearance Alert, Oriented X3, Cooperative, No acute distress Lungs Clear to auscultation, Normal air movement Cardiovascular Regular rate and rhythm, Normal S1 and S2, murmur unchanged Abdomen Normal bowel sounds, Soft, No tenderness, left-sided CVA tenderness Extremities No cyanosis, No clubbing, No edema Neurological Grossly normal Psych/Mental Status Mental status normal, Mood normal LAB Results Laboratory Tests 10/26 10/25 10/25 0615 1605 1605 Chemistry Plasma Sodium (136 - 145 mmol/L) 145 142 Plasma Potassium (3.5 - 5.1 mmol/L) 3.7 3.4 Plasma Chloride (98 - 107 mmol/L) 111 109 CO2 (Enzymatic) (21 - 32 mmol/L) 20 19 BUN (7 - 18 mg/dL) 13 14 Creatinine (0.6 - 1.3 mg/dL) 1.1 1.1 Est GFR ( Amer) (mL/min) >60 >60 Est GFR (Non-Af Amer) (mL/min) 58.77 58.77 Glucose (70 - 110 mg/dL) 85 90 Plasma Calcium (8.5 - 10.1 mg/dL) 8.6 8.7 Procalcitonin (0 - 0.5 ng/mL) < 0.05 Hematology WBC (4.5 - 11.5 K/uL) 11.4 13.2 RBC (4.00 - 5.20 M/uL) 4.00 4.19 Hgb (12.0 - 16.0 gm/dL) 11.9 12.6 Hct (36.0 - 46.0 %) 36.3 38.3 MCV (80 - 100 fL) 91 91 MCH (26 - 34 pg) 30 30 RDW (11.6 - 14.8 %) 12.9 13.6 Neut % (Auto) (50 - 75 %) 64 63 Lymph % (Auto) (25 - 40 %) 25 29 [place] % (Auto) (3 - 14 %) 1 6 Eos % (Auto) (0 - 4 %) 4 2 Baso % (Auto) (0 - 2 %) 0 0 Band Neutrophils % (0 - 8 %) 6 0 Metamyelocytes % (0 - 1 %) 0 0 Myelocytes (0 - 1 %) 0 0 Other Cell Type 0 0 Plt Count, EDTA (150 - 400 K/uL) 168 174 Hypochromic-Microcytic 1+ PUBS MCHC (31 - 37 g/dL) 33 33 Imaging Abdominal Ultrasound IMPRESSION: 1. Moderately severe left hydronephrosis, probably fairly stable compared to the CT scan. 2. Left hydroureter, similar caliber compared to the prior study. Ureteral calculus was not visible secondary to bowel gas. 3. 6 mm left intrapelvic, nonobstructing calcification. 4. Nonobstructing 1.7 cm right intrarenal/intrapelvic calcification. 5. Discussed with Dr. Fernandez. Dictated by: ADOLPH PA MD D: EL;10/26/16 7412 Assessment and Plan Problem List 1. Ureteral stone with hydronephrosis Status Acute Onset Date Unknown Plan -Patient with persistent left-sided ureteral calculus with associated hydronephrosis -Urinalysis/urine C&S negative for infection -Patient treated with Levaquin 500 mg IV daily -Patient discussed with urology (Nitin Gilbert M.D.) who has agreed to accept the patient in transfer to the hospital service with urology consultation -COBRA forms completed -We'll transfer to [facility] for further evaluation and treatment per urology/hospitalist team 2. SVT (supraventricular tachycardia) Status Chronic Onset Date Unknown Plan -Not problematic this time -No findings of SVT during the patient's hospitalization 3. Hypertension Plan -BP well-controlled to low -Monitor 4. Intractable vomiting Plan -Persistent nausea -No vomiting -Patient nothing by mouth Current status: Fair, unchanged Anticipated discharge date: Anticipated discharge today with transfer to [facility] Anticipated discharge placement: [facility] Patient care time: Time spent in chart review, patient interview, physical exam, CPOE, and care documentation: Greater than 30 minutes Visit to patient today: 2 Complexity of care: Moderate For other recommendations regarding discharge diet, activity, followup, and discharge medications please see the patient's discharge instructions. Greater than 30 min. was spent in the patient's discharge preparation including discharge interview and physical examination, progress note, discharge instructions, and discharge summary E&M Codes Discharge: Inpt >30 min spent/20930
--- NOTE | 2016-10-26 07:52 | Progress Note ---
Subjective General Note Date: October 26, 2016 Admission Date: October 25, 2016 Hospital Day: 2 PCP: Unknown Status: Observation Advanced Directive: Full Code Room: 209-B Brief History: The patient is a 40-year-old white female with a significant past medical history of congenital heart disease-status post ASD/VSD repair, SVT, who presented to [facility] emergency department secondary to back pain, nausea and vomiting. [facility] ER evaluation was consistent with left ureteral stone with associated hydronephrosis. Secondary to the above, the patient was admitted by Valentin Teresa M.D. for further evaluation and treatment. For other history present illness, past medical history, family history, social history, review of systems, and admission physical examination please see the patient's history and physical examination and ER visit note in the patient's medical record. Subjective: The patient states her symptoms remain unchanged. Persistent left-sided back pain and nausea overnight. No significant improvement in the past 24 hours. Patient requests: No specific, pain control, nausea control Medications and Allergies Medications Current Medications Sig/Kp Start time Last Medication Dose Route Stop Time Status Admin Tamsulosin HCl 0.4 MG QHS 10/26 2100 AC PO Ketorolac 30 MG Q6HR 10/25 1800 AC 10/26 Tromethamine IV 10/26 1201 0610 Meperidine HCl See Dose Q3H PRN 10/25 1615 AC Insts (1) IV Promethazine HCl 6.25 MG Q6H PRN 10/25 1615 AC 10/25 IV 2332 Levofloxacin/Dextrose 100 ML DAILY 10/25 1015 AC 10/25 IV 1053 Lactated Ringer's 1,000 ML ASDIRECTED 10/25 0015 AC 10/26 IV 0110 Lorazepam 0.5 MG Q4H PRN 10/25 0015 AC 10/26 IV 0619 Ondansetron HCl 4 MG Q4H PRN 10/24 2230 AC 10/25 IV 1640 Dose Instructions: (1)Meperidine HCl: 25 - 50 MG Allergies Coded Allergies: Penicillins (Swelling, face, throat 10/25/16) Oxycodone (From PERCOCET) (Vomiting 10/25/16) Physical Exam Vital Signs / I&Os Vital Signs Date Time Temp Pulse Resp B/P Pulse O2 O2 Flow FiO2 Ox Delivery Rate 10/26 0650 98.6 74 18 124/75 96 Room Air 10/25 2323 98.1 76 18 114/51 94 Room Air 10/25 1935 Room Air 10/25 1802 98.1 70 18 134/78 99 04/ 1417 98.4 72 18 96/50 100 04/02 0958 97.9 72 18 97/60 97 Room Air 10/25 0825 Room Air 0.0 I&O 10/26 0000 10/25 1600 10/25 0800 Intake Total 120 1442 1248 Output Total 550 200 120 Balance -430 1242 1128 General Appearance Alert, Oriented X3, Cooperative, No acute distress Lungs Clear to auscultation, Normal air movement Cardiovascular Regular rate and rhythm, Normal S1 and S2, murmur unchanged Abdomen Normal bowel sounds, Soft, No tenderness, left-sided CVA tenderness Extremities No cyanosis, No clubbing, No edema Neurological Grossly normal Psych/Mental Status Mental status normal, Mood normal LAB Results Laboratory Tests 10/26 10/25 10/25 0615 1605 1605 Chemistry Plasma Sodium (136 - 145 mmol/L) 145 142 Plasma Potassium (3.5 - 5.1 mmol/L) 3.7 3.4 Plasma Chloride (98 - 107 mmol/L) 111 109 CO2 (Enzymatic) (21 - 32 mmol/L) 20 19 BUN (7 - 18 mg/dL) 13 14 Creatinine (0.6 - 1.3 mg/dL) 1.1 1.1 Est GFR ( Amer) (mL/min) >60 >60 Est GFR (Non-Af Amer) (mL/min) 58.77 58.77 Glucose (70 - 110 mg/dL) 85 90 Plasma Calcium (8.5 - 10.1 mg/dL) 8.6 8.7 Procalcitonin (0 - 0.5 ng/mL) < 0.05 Hematology WBC (4.5 - 11.5 K/uL) 11.4 13.2 RBC (4.00 - 5.20 M/uL) 4.00 4.19 Hgb (12.0 - 16.0 gm/dL) 11.9 12.6 Hct (36.0 - 46.0 %) 36.3 38.3 MCV (80 - 100 fL) 91 91 MCH (26 - 34 pg) 30 30 RDW (11.6 - 14.8 %) 12.9 13.6 Neut % (Auto) (50 - 75 %) 64 63 Lymph % (Auto) (25 - 40 %) 25 29 [place] % (Auto) (3 - 14 %) 1 6 Eos % (Auto) (0 - 4 %) 4 2 Baso % (Auto) (0 - 2 %) 0 0 Band Neutrophils % (0 - 8 %) 6 0 Metamyelocytes % (0 - 1 %) 0 0 Myelocytes (0 - 1 %) 0 0 Other Cell Type 0 0 Plt Count, EDTA (150 - 400 K/uL) 168 174 Hypochromic-Microcytic 1+ PUBS MCHC (31 - 37 g/dL) 33 33 Imaging Abdominal Ultrasound IMPRESSION: 1. Moderately severe left hydronephrosis, probably fairly stable compared to the CT scan. 2. Left hydroureter, similar caliber compared to the prior study. Ureteral calculus was not visible secondary to bowel gas. 3. 6 mm left intrapelvic, nonobstructing calcification. 4. Nonobstructing 1.7 cm right intrarenal/intrapelvic calcification. 5. Discussed with Dr. Fernandez. Dictated by: ADOLPH PA MD D: EL;10/26/16 1539 Assessment and Plan Problem List 1. Ureteral stone with hydronephrosis Status Acute Onset Date Unknown Plan -Patient with persistent left-sided ureteral calculus with associated hydronephrosis -Urinalysis/urine C&S negative for infection -Patient treated with Levaquin 500 mg IV daily -Patient discussed with urology (Nitin Gilbert M.D.) who has agreed to accept the patient in transfer to the hospital service with urology consultation -COBRA forms completed -We'll transfer to [facility] for further evaluation and treatment per urology/hospitalist team 2. SVT (supraventricular tachycardia) Status Chronic Onset Date Unknown Plan -Not problematic this time -No findings of SVT during the patient's hospitalization 3. Hypertension Plan -BP well-controlled to low -Monitor 4. Intractable vomiting Plan -Persistent nausea -No vomiting -Patient nothing by mouth Current status: Fair, unchanged Anticipated discharge date: Anticipated discharge today with transfer to [facility] Anticipated discharge placement: [facility] Patient care time: Time spent in chart review, patient interview, physical exam, CPOE, and care documentation: Greater than 30 minutes Visit to patient today: 2 Complexity of care: Moderate For other recommendations regarding discharge diet, activity, followup, and discharge medications please see the patient's discharge instructions. Greater than 30 min. was spent in the patient's discharge preparation including discharge interview and physical examination, progress note, discharge instructions, and discharge summary E&M Codes Discharge: Inpt >30 min spent/[id number]
[2016-10-26 09:43] VITALS: BP 118/75
--- NOTE | 2016-10-26 12:12 | DIAGNOSTIC IMAGING REPORT ---
PROCEDURE: US KIDNEY/RENAL COMPLETE INDICATION: Hydronephrosis, ureteral calculi f/u TECHNIQUE: Morrison scale and color Doppler sonographic imaging of the kidneys and urinary bladder was obtained. Intrarenal resistive indices were calculated when appropriate. COMPARISON: CT scan 10/24/2016 FINDINGS: The right kidney measures 10.6 x 5.3 x 5.7 cm. Normal cortical thickness and echogenicity. There is a nonobstructing intrapelvic calculus measuring 1.7 cm. No suspicious cyst, calyceal dilatation, or solid mass. Normal color Doppler blood flow throughout the kidney. Resistive indices in the intrarenal parenchymal arteries range from 0.58 to 0.68. The left kidney measures 14.0 x 7.3 x 6.5 cm. Normal cortical thickness and echogenicity. There is moderately severe hydronephrosis. Within the renal pelvis, there is a dependently layering 6.2 mm calcification. The proximal ureter is dilated measuring between 10 and 11 mm. The distal ureter was shadowed by bowel gas. A stone within the ureter was not identified on the study. Normal color Doppler blood flow throughout the kidney. Resistive indices in the intrarenal parenchymal arteries range from 0.52-0.72. The partially filled urinary bladder has a volume of 105 ml and a post void residual of 8 ml the left ureteral jet was not visible. The right was well seen. The urinary bladder wall is uniform in thickness without suspicious thickening or irregularity. No bladder debris, calcification or mass. IMPRESSION: 1. Moderately severe left hydronephrosis, probably fairly stable compared to the CT scan. 2. Left hydroureter, similar caliber compared to the prior study. Ureteral calculus was not visible secondary to bowel gas. 3. 6 mm left intrapelvic, nonobstructing calcification. 4. Nonobstructing 1.7 cm right intrarenal/intrapelvic calcification. 5. Discussed with Dr. Fernandez.
[2016-10-26 14:32] VITALS: BP 119/59
--- NOTE | 2016-10-26 14:54 | Discharge Summary ---
Discharge Summary Report Admit Date 10/25/16 Discharge Date 10/26/16 Admission Diagnosis 1. Left ureteral calculus with hydronephrosis 2. Hypertension 3. SVT 4. Situs inversus Discharge Diagnosis 1. Left ureteral calculus with hydronephrosis 2. Hypertension 3. SVT 4. Situs inversus Brief History The patient is a 40-year-old white female with a significant past medical history of congenital heart disease-status post ASD/VSD repair, SVT, who presented to [facility] emergency department secondary to back pain, nausea and vomiting. [facility] ER evaluation was consistent with left ureteral stone with associated hydronephrosis. Secondary to the above, the patient was admitted by Valentin Teresa M.D. for further evaluation and treatment. For other history present illness, past medical history, family history, social history, review of systems, and admission physical examination please see the patient's history and physical examination and ER visit note in the patient's medical record. Hospital Course The following problems and their management were noted during the patient's hospitalization: 1. Left ureteral calculus with hydronephrosis The patient presented with findings of abdominal pain, nausea, vomiting. Evaluation was consistent with left-sided distal ureteral calculi with associated hydronephrosis. Urology was contacted and asked that the patient be observed for 24 hours with IV fluid therapy, Flomax, pain medications and antiemetics. The patient had persistent symptoms on her second hospital day. 4. Ultrasound showed persistent hydronephrosis consistent with distal ureteral stone. [facility] urology-Dr. Nitin Gilbert was contacted and accepted the patient transferred to the hospital service with urology consultation. The patient was noted to have minor changes on her urinary sediment and was placed on Levaquin 500 mg IV daily. Urine C&S was negative at the time of transfer. 2. Hypertension Well controlled. Blood pressure 119/59 mmHg and discharge. 3. SVT The patient has a history of SVT. This was not noted throughout the patient's hospitalization. No further evaluation was undertaken. 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 Both of these were repaired. No further evaluation was undertaken during the patient's hospitalization. Lab/Imaging Laboratory Tests 10/26 10/25 10/25 0615 1605 1605 Chemistry Plasma Sodium (136 - 145 mmol/L) 145 142 Plasma Potassium (3.5 - 5.1 mmol/L) 3.7 3.4 Plasma Chloride (98 - 107 mmol/L) 111 109 CO2 (Enzymatic) (21 - 32 mmol/L) 20 19 BUN (7 - 18 mg/dL) 13 14 Creatinine (0.6 - 1.3 mg/dL) 1.1 1.1 Est GFR ( Amer) (mL/min) >60 >60 Est GFR (Non-Af Amer) (mL/min) 58.77 58.77 Glucose (70 - 110 mg/dL) 85 90 Plasma Calcium (8.5 - 10.1 mg/dL) 8.6 8.7 Procalcitonin (0 - 0.5 ng/mL) < 0.05 Hematology WBC (4.5 - 11.5 K/uL) 11.4 13.2 RBC (4.00 - 5.20 M/uL) 4.00 4.19 Hgb (12.0 - 16.0 gm/dL) 11.9 12.6 Hct (36.0 - 46.0 %) 36.3 38.3 MCV (80 - 100 fL) 91 91 MCH (26 - 34 pg) 30 30 RDW (11.6 - 14.8 %) 12.9 13.6 Neut % (Auto) (50 - 75 %) 64 63 Lymph % (Auto) (25 - 40 %) 25 29 [place] % (Auto) (3 - 14 %) 1 6 Eos % (Auto) (0 - 4 %) 4 2 Baso % (Auto) (0 - 2 %) 0 0 Band Neutrophils % (0 - 8 %) 6 0 Metamyelocytes % (0 - 1 %) 0 0 Myelocytes (0 - 1 %) 0 0 Other Cell Type 0 0 Plt Count, EDTA (150 - 400 K/uL) 168 174 Hypochromic-Microcytic 1+ PUBS MCHC (31 - 37 g/dL) 33 33 Discharge Instructions/Meds For other recommendations regarding discharge diet, activity, followup, and discharge medications please see the patient's discharge instructions. Discharge condition: Fair, unchanged Greater than 30 min. was spent in the patient's discharge preparation including discharge interview and physical examination, progress note, discharge instructions, and discharge summary The patient was interviewed and examined on the day of discharge. E&M Codes Discharge: Inpt >30 min spent/[id number]
--- NOTE | 2016-10-26 15:03 | Provider's Discharge Care Plan ---
Problem, Goal, Plan Problem List 1. Ureteral stone with hydronephrosis Goals: Improve disease control, Improve function, Improved health/wellness, Prevent disease progress Instructions: Follow up as directed
== END 2016-10-26 18:15 | disposition short-term general hospital (02) | DRG 694 ==
LOC: ED SRH 15:50 → TRANS SRH 21:51 → ACUTE2 SRH 10-25 00:17
PROVIDERS: ADMIT Emergency Medicine Emergency Medical Services
DX: N13.2 Hydronephrosis with renal and ureteral calculous obstruction (principal); R11.2 Nausea with vomiting, unspecified; I47.1 Supraventricular tachycardia; Q89.3 Situs inversus; I10 Essential (primary) hypertension; Z87.74 Personal history of (corrected) congenital malformations of heart and circulatory system; F17.210 Nicotine dependence, cigarettes, uncomplicated
CPT/HCPCS: 29230; 29242; 29247; 29263; 81460; 90004; 90047; 90074; 90100; 90301; 90469; 91295; 92031; 92760; 92761; 92762; 92763; 92764; 92765; 92766; 92767; 93004; 93070; 95059; 95061